=== PATIENT | male | born 1970 | race Caucasian/White ===

== ENCOUNTER → 2020-12-27 13:09 | Outpatient (CLI) | payer BC, SELFPAY ==
[2020-12-20 14:49] VITALS: BMI 24.4
--- NOTE | 2020-12-27 15:00 | PET_ITS ---
EXAMINATION: FDG PET-CT INDICATIONS: A 50-year-old male with a history of head and neck carcinoma presenting for initial staging examination. COMPARISON EXAMINATION: None. INDEX LESION SIZE SUV INTERPRETATION Right anterior neck-laryngeal structures 8.6 mm (frame 253) 2.6 Fulfills quantitative criteria for viable neoplasm. TECHNIQUE: Following the intravenous administration of 13.81 mCi of F-18 deoxyglucose via the left antecubital fossa, multiplanar image acquisitions of the head, neck, chest, abdomen and pelvis to level of mid-thigh, lower extremities obtained at one hour post radiopharmaceutical administration contemporaneously interpreted with the current CT of the head, neck, chest, abdomen and pelvis to level of mid-thigh, lower extremities dated 12/27/20 via coregistration and reveal: SERUM GLUCOSE LEVEL: 86 mg/dl. HEIGHT: 69 inches. WEIGHT: 165 lbs. FINDINGS: 1. There is an asymmetric increase in glucose metabolism manifest in the anterior neck, laryngeal structures associated with the distribution of the right true-false vocal cord. The calculated maximum standard uptake value is 2.6. The maximum axial diameter of the metabolic abnormality on review of CT of the neck dated 12/27/20 is 8.6 mm (AP). 2. Normal physiologic distribution of the radiopharmaceutical is apparent in the hepatic (2.4) and splenic parenchyma, both renal units, bladder and visualized intestinal tract. The visualized portion of the cerebral cortex demonstrate symmetric and preserved glucose metabolism. Diffuse intestinal tract activity is noted throughout all four quadrants of the abdominal-pelvic retroperitoneum and mesentery consistent with normal physiologic distribution of the radiopharmaceutical most accentuated in the distribution of the mid-distal ascending colon segmental in presentation in the axial plane most consistent with physiologic tracer uptake. Pertinent CT findings are as follows. CHEST: There is atherosclerotic calcification defined in the thoracic aorta without evidence of dilatation-aneurysm formation. Coronary arterial calcification is observed. There are no parenchymal densities-nodules defined in the right and left hemithorax with discernable increased FDG uptake. Bilateral axillary soft tissue with fatty hilus is ametabolic. ABDOMEN AND PELVIS: Atherosclerotic calcification is defined in the abdominal aorta without evidence of dilatation, aneurysm formation. Pelvic arterial calcification is observed. Right-left inguinal soft tissue densities with fatty hilus are ametabolic. A fat containing left inguinal hernia is noted. Colonic diverticulosis is discerned without evidence of diverticulitis. Calcifications observed in the lower pelvis associated with the prostate gland without evidence of increased tracer uptake. SKELETAL: Degenerative changes defined in the cervical, thoracic and lumbar spine demonstrate no evidence of glucose hypermetabolism. PET/PET/CT Tumor Base -Thigh Init IMPRESSION: 1. ABNORMAL EXAMINATION INDICATIVE OF MALIGNANT- VIABLE NEOPLASM. 2. Enhanced tracer concentration noted in the laryngeal structures involving the vocal cords to the right of midline fulfills quantitative criteria for viable neoplasm. 3. No other quantitative significant hypermetabolic abnormalities are noted. There is no scintigraphic evidence of local regional or distant metastatic disease. Electronic Signature Bryan Anderson D.O. Accurate Quantification of SUVs for this report are calculated using the exclusive [employer]. ([place]. Patent No. [id number] [id number]). Standardization and correction of the FDG SUV metric via [employer] technology allow for vendor non-specific objective quantitative examination comparison and optimization of the sensitivity and specificity of the FDG PET-CT examination. Electronically Signed: Bryan Anderson DO at 22:20 EDT Tel , Service support ,
== END ==
PROVIDERS: Referring Provider Otolaryngology Otolaryngic Allergy; Visit Provider Otolaryngology Otolaryngic Allergy
DX: C32.0 Malignant neoplasm of glottis (principal)
CPT/HCPCS: 78815; A9552